=== PATIENT | female | born 1955 | race Caucasian/White ===

== ENCOUNTER 2020-09-12 08:27 | Outpatient (CLI) | payer BC ==
[2020-09-12 10:00] LABS: Estimated GFR-MDRD - POC Greater than 90
== END 2020-09-12 08:28 | disposition home or self-care (01) ==
LOC: CSHMRI 08:27
PROVIDERS: ATTEND Family Medicine
DX: G45.9 Transient cerebral ischemic attack, unspecified (principal); R90.82 White matter disease, unspecified; R93.1 Abnormal findings on diagnostic imaging of heart and coronary circulation
CPT/HCPCS: 70553; 82565; 93306; 93880